=== PATIENT | female | born 1960 | race Two or more races ===

== ENCOUNTER 2017-09-06 07:40 | Day surgery (SDC) | payer MEDICAID ==
[~2017-09-06] VITALS: Ht 157.5 cm; Wt 67.1 kg
[2017-09-06] VITALS (11 sets, daily range): BP systolic 110–163; BP diastolic 61–79
[2017-09-06] MEDS ORDERED: NKM (08:56)
[2017-09-06] MEDS ORDERED: LR 1000ml ONE (09:00)
[2017-09-06] MEDS ORDERED: Propofol 200mg/20ml IV ONE (09:00)
[2017-09-06] MEDS ORDERED: Lidocaine 1% MPF 10mg/ml 5ml ONE (09:00)
--- NOTE | 2017-09-06 09:00 | Pre-Procedure Note/Attestation ---
Pre-Procedure Note/Attestation Complete Prior to Procedure Planned Procedure: not applicable Procedure Narrative: EUS Indications for Procedure Pre-Operative Diagnosis: pancreatic cyst Attestation I attest that I discussed the nature of the procedure; its benefits; risks and complications; and alternatives (and the risks and benefits of such alternatives ), prior to the procedure, with the patient (or the patient's legal account retention representative). I attest that, if there was a reasonable possibility of needing a blood transfusion, the patient (or the patient's legal account retention representative) was given the [facility] standardized written summary, pursuant to the Talha Darwin Blood Safety Act ([place] Health and Safety Code # 1645, as amended). I attest that I re-evaluated the patient just prior to the surgery and that there has been no change in the patient's H&P, except as documented below: SHIV LANIER Sep 06, 2017 09:00
--- NOTE | 2017-09-06 09:02 | Short Stay Surgery H&P ---
History of Present Illness History of Present Illness Chief Complaint pancreatic cyst HPI Mattie De Los Santos is a 57 year old female who was admitted on for Pancreatic Cyst Patient History Allergies: Coded Allergies: No Known Allergies (Unverified , 09/06/17) PAST MEDICAL HISTORY: (1) Gastritis Past Surgeries: Social History: Medication History Scheduled No Known Medications* (NKM - No Known Medications*), 0 ., (Reported) Review of Systems Cardiovascular: Reports: no symptoms Respiratory: Reports: no symptoms Skeletal: Reports: no symptoms Gastrointestinal: Reports: no symptoms Genitourinary: Reports: no symptoms Neurologic: Reports: no symptoms Endocrine: Reports: no symptoms Hematologic: Reports: no symptoms Physical Exam Vital Signs Last Vital Signs Date Time Temp Pulse Resp B/P (MAP) Pulse Ox O2 Delivery O2 Flow Rate FiO2 09/06/17 08:53 97.3 80 16 129/79 98 Room Air Skin: normal HENT: normal Heart: normal Lungs: normal Abdomen: normal Extremities: normal Plan Plan of Care eus Final Diagnosis: Attestation Are the patient's medical conditions optimized for surgery? Attestation Response: yes SHIV LANIER Sep 06, 2017 09:02
[2017-09-06] MEDS ORDERED: fentaNYL 100 mcg/2 mL IV PRN (09:15)
--- NOTE | 2017-09-06 09:19 | Anethesia Preoperative Eval ---
Anesthesia Pre-op PMH/ROS General Date of Evaluation: Sep 06, 2017 Time of Evaluation: 09:16 Anesthesiologist: aislinn ASA Score: ASA 2 Mallampati Score Class I : Soft palate, uvula, fauces, pillars visible Class II: Soft palate, uvula, fauces visible Class III: Soft palate, base of uvula visible Class IV: Only hard plate visible Mallampati Classification: Class II Surgeon: farnaz Diagnosis: pancreatic cyst Surgical Procedure: EUS Anesthesia History: none Family History: no anesthesia problems Allergies: Coded Allergies: No Known Allergies (Unverified , 09/06/17) Medications: see eMAR Past Medical History Cardiovascular: Reports: HTN Pulmonary: Denies: asthma, COPD, EMMA, other Gastrointestinal/Genitourinary: Reports: GERD Neurologic/Psychiatric: Denies: dementia, CVA, depression/anxiety, TIA, other Endocrine: Denies: DM, hypothyroidism, steroids, other HEENT: Denies: cataract (L), cataract (R), glaucoma, ENTERPRISE (L), ENTERPRISE (R), other Hematology/Immune: Denies: anemia, DVT, bleeding disorder, other Musculoskeletal/Integumentary: Reports: DJD, Denies: OA, RA, DDD, edema, other PSxH Narrative: masectomy Anesthesia Pre-op Phys. Exam Physician Exam Last Vital Signs Date Time Temp Pulse Resp B/P (MAP) Pulse Ox O2 Delivery O2 Flow Rate FiO2 09/06/17 08:53 97.3 80 16 129/79 98 Room Air Constitutional: NAD Neurologic: CN 2-12 intact Cardiovascular: RRR Respiratory: CTA Gastrointestinal: S/NT/ND Airway Exam Mallampati Classification 2 Mallampati Score: Class II MO: full Neck: normal ROM: full Dentures: no upper, no lower Anesthesia Pre-op A/P Labs Hematology Test 09/06/17 08:30 White Blood Count Pending Red Blood Count Pending Hemoglobin Pending Hematocrit Pending Mean Corpuscular Volume Pending Mean Corpuscular Hemoglobin Pending Mean Corpuscular Hemoglobin Concent Pending Red Cell Distribution Width Pending Platelet Count Pending Mean Platelet Volume Pending Neutrophils (%) (Auto) Pending Lymphocytes (%) (Auto) Pending Monocytes (%) (Auto) Pending Eosinophils (%) (Auto) Pending Basophils (%) (Auto) Pending Chemistry Test 09/06/17 08:30 Sodium Level Pending Potassium Level Pending Chloride Level Pending Carbon Dioxide Level Pending Blood Urea Nitrogen Pending Creatinine Pending Estimat Glomerular Filtration Rate Pending Glucose Level Pending Calcium Level Pending Total Bilirubin Pending Aspartate Amino Transf (AST/SGOT) Pending Alanine Aminotransferase (ALT/SGPT) Pending Alkaline Phosphatase Pending Total Protein Pending Albumin Pending Globulin Pending Amylase Level Pending Lipase Pending Studies Pre-op Studies: EKG - SR Risk Assessment & Plan Plan: mac Status Change Before Surgery: No Pre-Antibiotics Drug: none SULY SHAW CRNA Sep 06, 2017 09:19
[2017-09-06 09:24] LABS: BASOPHILS % (AUTO) 1.2 % (0.0-2.0); HEMATOCRIT 45.3 % (37.0-47.0); HEMOGLOBIN 15.3 G/DL (12.0-16.0); LYMPHOCYTES % (AUTO) 35.3 % (20.0-45.0); MEAN CORPUSCULAR VOLUME 92 FL (80-99); MONOCYTES % (AUTO) 7.7 % (1.0-10.0); NEUTROPHILS % (AUTO) 54.8 % (45.0-75.0); PLATELET COUNT 214 K/UL (150-450); RED BLOOD COUNT 4.95 M/UL (4.20-5.40); RED CELL DISTRIBUTION WIDTH 11.9 % (11.6-14.8)
--- NOTE | 2017-09-06 09:24 | Endoscopy Procedure Note ---
Endoscopy Procedure Note Indication for Procedure: pancreatic cyst Procedures Performed: other - EUS Operative Findings/Diagnosis: same Pt Tolerated Procedure Well: Yes Estimated Blood Loss: none Anesthesiologist: julian Anesthesia: MAC Implant(s) used?: No 50 yrs or older w/o bx or poly: Not Applicable 10yrs. F/U not recommended: Not Applicable SHIV LANIER Sep 06, 2017 09:24
[2017-09-06 09:32] LABS: ANION GAP 7 mmol/L (5-15); BLOOD UREA NITROGEN 13 mg/dL (7-18); CALCIUM 9.5 MG/DL (8.5-10.1); CARBON DIOXIDE 27 MMOL/L (21-32); CHLORIDE 105 MMOL/L (98-107); CREATININE 0.7 MG/DL (0.55-1.30); POTASSIUM 4.1 MMOL/L (3.5-5.1); SODIUM 139 MMOL/L (136-145)
[2017-09-06 09:36] LABS: ALANINE AMINOTRANSFERASE 24 U/L (12-78); ALBUMIN 3.6 G/DL (3.4-5.0); ALBUMIN/GLOBULIN RATIO 0.8 (1.0-2.7); ALKALINE PHOSPHATASE 100 U/L (46-116); AMYLASE 63 U/L (25-115); ASPARTATE AMINO TRANSFERASE 18 U/L (15-37); BILIRUBIN,TOTAL 0.4 MG/DL (0.2-1.0)
[2017-09-06] MEDS ORDERED: Heplock Flush 100 units/ml 3 ml syr ONE (09:37)
--- NOTE | 2017-09-06 10:10 | Immediate Post-Op Evaluation ---
Immediate Post-Op Evalulation Immediate Post-Op Evalulation Procedure: EUS Date of Evaluation: Sep 06, 2017 Time of Evaluation: 10:10 IV Fluids: 800 Blood Pressure Systolic: 115 Blood Pressure Diastolic: 60 Pulse Rate: 74 Respiratory Rate: 14 O2 Sat by Pulse Oximetry: 100 Temperature (Fahrenheit): 97.5 Pain Score (1-10): 0 Nausea: No Vomiting: No Complications none Patient Status: awake, reacts, patent Hydration Status: adequate Drug: SULY Caruso CRNA Sep 06, 2017 10:10
--- NOTE | 2017-09-06 15:45 | Procedure Note ---
DATE OF PROCEDURE: 09/06/2017 SURGEON: Rodrick Syed M.D. PROCEDURE: Endoscopic ultrasound with fine-needle aspiration. ANESTHESIA: Per DYE CAN OPERATOR, Sridevi Tarrillion. INSTRUMENT: Olympus adult flexible EUS scope. INDICATION: Pancreatic cyst. The procedure, risks, benefits, and possible consequences, including hemorrhage, aspiration, perforation and infection, and alternative treatments, were explained to the patient/legal guardian by Dr. Rodrick Syed and the patient/legal guardian understood and accepted these risks. DESCRIPTION OF PROCEDURE: After informed consent was obtained and the patient was adequately sedated, EUS radial scope was introduced into the esophagus, subsequently into the stomach and duodenum. The patient had prior history of partial pancreatectomy. Tail of the pancreas has been removed. The pancreatic parenchyma grossly looked abnormal. There was evidence of stranding, evidence of linear hyperechoic foci and lobulation of the pancreatic parenchyma suspicious for either chronic pancreatitis or prior history of pancreatitis. Pancreatic duct was not dilated, actually was not even seen in the body. The patient had already partial pancreatectomy, so the pancreatic duct was not seen. As we get close to the surgical area, there was a suture in place that caused a lot of shadowing and made it a little bit limited. There is evidence of a cyst right at the suture line. This cyst measured about 2.7 cm in size. It is a complex looking cyst, mostly looks like a clear cyst, but there are some filling defects and some debris that seems to be included in this cyst. I could not even see the pancreatic duct to see if it is arising from pancreatic duct or not. At this time, we decided to do an FNA. We used a 25-gauge regular needle, put it twice in the lesion. I was surprised because I thought I am going to get a lot of fluid coming out, but there was no fluid coming out of this cyst, so most probably a gelatinous cyst, so we called the pathologist to come in for obtaining slides from this cyst. Again two passes of 25-gauge needle was done and tissue was sent to the pathologist for evaluation. The patient tolerated the procedure very well without any complication. SUMMARY OF FINDINGS: 1. A 2.7 cm complex cystic pancreatic lesion at the area of the prior partial pancreatectomy, status post FNA x2. See above for details. 2. Evidence of questionable chronic pancreatitis. RECOMMENDATIONS: Follow FNA results and treat accordingly. Rodrick Syed M.D. DR: VALENTÍN JOB#: [id number] CC:
--- NOTE | 2017-09-09 19:33 | Cardiology Report ---
APPROVED REPORT EKG Measurement Heart [id number] Normal sinus rhythm Right atrial enlargement Borderline ECG
[2017-09-10 07:31] VITALS: BP 145/65
--- NOTE | 2017-09-10 07:31 | 48 Hour Post Anesthesia Eval ---
Post Anesthesia Evaluation Procedure: EUS Date of Evaluation: Sep 10, 2017 Time of Evaluation: 07:31 Blood Pressure Systolic: 145 0: 65 Pulse Rate: 71 Temperature (Fahrenheit): 97 Airway: patent Nausea: No Vomiting: No Hydration Status: adequate Cardiopulmonary Status: stable Mental Status/LOC: patient returned to baseline Follow-up Care/Observations: na Post-Anesthesia Complications: none Follow-up care needed: N/A SULY SHAW CRNA Sep 10, 2017 07:31
== END 2017-09-06 12:05 | disposition home or self-care (01) ==
LOC: GAS 07:40
DX: K86.2 Cyst of pancreas (principal); I10 Essential (primary) hypertension; K21.9 Gastro-esophageal reflux disease without esophagitis; M19.90 Unspecified osteoarthritis, unspecified site; Z90.10 Acquired absence of unspecified breast and nipple
CPT/HCPCS: 36415; 43242; 80053; 82150; 82378; 83690; 85025; 93005; J1642; J1956; J2704; J3010; J7120; Z7512; 94003; 94150